=== PATIENT | female | born 1970 | race Hispanic/Latino ===

== ENCOUNTER 2020-07-29 16:00 | Outpatient (RCR) | payer OTHER | END 2020-07-30 | LOC: PT 16:00 | PROVIDERS: ATTEND Specialist | DX: M54.16 Radiculopathy, lumbar region (principal); M62.830 Muscle spasm of back; M62.81 Muscle weakness (generalized) ==

== ENCOUNTER 2020-08-29 15:00 | Outpatient (RCR) | payer OTHER | END 2020-08-30 | LOC: PT 15:00 | PROVIDERS: ATTEND Specialist | DX: M54.16 Radiculopathy, lumbar region (principal); M62.830 Muscle spasm of back; M62.81 Muscle weakness (generalized) | CPT/HCPCS: 97139 ==

== ENCOUNTER 2020-09-03 11:15 | Outpatient (RCR) | payer OTHER | END 2020-09-29 | LOC: PT 11:15 | PROVIDERS: ATTEND Specialist | DX: M54.16 Radiculopathy, lumbar region (principal); M62.81 Muscle weakness (generalized); M62.830 Muscle spasm of back | CPT/HCPCS: 97139 ==